=== PATIENT | female | born 1965 | race Caucasian/White ===

== ENCOUNTER 2018-04-03 16:58 | Emergency (ER) | payer BC ==
[~2018-04-03] VITALS: Ht 167.6 cm; Wt 53.1 kg
[2018-04-03 17:11] VITALS: Ht 167.6 cm; Wt 53.1 kg
[2018-04-03 20:02] VITALS: BP 94/62
== END 2018-04-03 20:02 | disposition home or self-care (01) ==
LOC: ED 16:58
DX: S03.2XXA Dislocation of tooth, initial encounter (principal); S00.81XA Abrasion of other part of head, initial encounter; F41.9 Anxiety disorder, unspecified; F32.9 Major depressive disorder, single episode, unspecified; W01.0XXA Fall on same level from slipping, tripping and stumbling without subsequent striking against object, initial encounter; Y93.89 Activity, other specified; Y92.89 Other specified places as the place of occurrence of the external cause; Y99.8 Other external cause status
CPT/HCPCS: J0696